=== PATIENT | female | born 1990 | race Caucasian/White ===

== ENCOUNTER 2016-11-11 23:11 | Emergency (ER) | payer MEDICAID | END 2016-11-12 02:57 | disposition home or self-care (01) | LOC: ER 23:11 | DX: R04.2 Hemoptysis (principal); J20.9 Acute bronchitis, unspecified; O26.92 Pregnancy related conditions, unspecified, second trimester | CPT/HCPCS: 36415; 80053; 85025; 85379; 85610; 85730 ==